=== PATIENT | female | born 1985 | race Caucasian/White ===

== ENCOUNTER 2019-01-20 16:10 | Emergency (ER) | payer BC ==
[2019-01-20 16:47] VITALS: BP 121/65
--- NOTE | 2019-01-20 17:06 | UC ---
Respiratory Complaint HPI - HPI Summary HPI Summary: 33-year-old woman comes in with a chief complaint of 3-1/2 weeks of upper respiratory tract infection symptoms. Patient is 15 weeks . She's been using Robitussin without much relief. Patient does have some rhinorrhea occasionally is yellow location is white. In the evening she notices a postnasal drip during the daytime she does notice the post nasal drip. She feels like she has congestion in her chest. When she coughs she feels like she started to get something up but then she gets into coughing fits where she coughed so much she vomits. She did have fevers early in the illness. - History of Current Complaint Chief Complaint: UCRespiratory Stated Complaint: COUGH (15 WEEKS PREG) Time Seen by Provider: 01/20/19 16:55 Hx Last Menstrual Period: 10/05/18 Pain Intensity: 0 - Allergies/Home Medications Allergies/Adverse Reactions: Allergies Allergy/AdvReac Type Severity Reaction Status Date / Time bee sting Allergy Swelling Uncoded 01/20/19 16:47 Home Medications: Home Medications Nighttime Robitussin 1 dose PO QPM PRN 01/20/19 [History Confirmed 01/20/19] Vitamin TAB* 1 tab PO DAILY 01/20/19 [History Confirmed 01/20/19] Vitamin D Tablet 1 dose PO QPM 01/20/19 [History Confirmed 01/20/19] guaiFENesin LIQ* [Robitussin*] 20 ml PO DAILY PRN 01/20/19 [History Confirmed ] PMH/Surg Hx/FS Hx/Imm Hx Previously Healthy: Yes - Surgical History Surgical History: None - Family History Known Family History: Positive: Non-Contributory - Social History Alcohol Use: None Substance Use Type: None Smoking Status (MU): Never Smoked Tobacco Review of Systems All Other Systems Reviewed And Are Negative: Yes Constitutional: Positive: Fever Skin: Positive: Negative Eyes: Positive: Negative ENT: Positive: Nasal Discharge, Sinus Congestion Respiratory: Positive: Cough, Other - see hpi Cardiovascular: Positive: Negative Gastrointestinal: Positive: Vomiting Motor: Positive: Negative Neurovascular: Positive: Negative Musculoskeletal: Positive: Negative Neurological: Positive: Negative Psychological: Positive: Negative Is Patient Immunocompromised?: No Physical Exam Triage Information Reviewed: Yes Appearance: Well-Appearing, No Pain Distress, Well-Nourished Vital Signs: Initial Vital Signs Temp 99 F 01/20/19 16:38 Pulse 92 01/20/19 16:38 Resp 20 01/20/19 16:38 BP 121/65 01/20/19 16:38 Pulse Ox 98 01/20/19 16:38 Vital Signs Reviewed: Yes Eye Exam: Normal Eyes: Positive: Conjunctiva Clear ENT: Positive: Pharyngeal erythema, Nasal congestion, Nasal drainage, TMs normal Neck: Positive: Supple Respiratory: Positive: Lungs clear, Normal breath sounds, No respiratory distress Cardiovascular: Positive: RRR Musculoskeletal: Positive: Strength Intact, ROM Intact Neurological: Positive: Alert, Muscle Tone Normal Psychological: Positive: Age Appropriate Behavior, Abnormal Response To Family Skin Exam: Normal Respiratory Course/Dx - Course Course Of Treatment: We discussed viral versus bacterial infections and the role of antibiotics. Patient does have some green rhinorrhea and her symptoms been going on for 3-1/ 2 weeks. She feels like the congestion in her chest is her biggest concern. Patient is we'll treat with Nabeel azithromycin. Patient also continue symptomatic treatment is appropriate during . Follow-up with [facility] get reevaluated sooner if worse or any questions or concerns. - Differential Dx/Diagnosis Provider Diagnosis: Bronchitis Discharge ED - Sign-Out/Discharge Documenting (check all that apply): Patient Departure All imaging exams completed and their final reports reviewed: No Studies - Discharge Plan Condition: Stable Disposition: HOME Prescriptions: Azithromyxin JOSIAS (NF) [Z-Josias (Zithromax) 250 mg tabs #6] 2 tab PO .TODAY, THEN 1 DAILY #6 tab Patient Education Materials: Acute Bronchitis (ED) Referrals: Amrita MATTA,Molly Ashraf [Primary Care Provider] - Additional Instructions: FOLLOW UP WITH YOUR OBGYN. GET REEVALUATED SOONER IF NOT IMPROVING OR YOUR CONDITION WORSENS OR ANY QUESTIONS OR CONCERNS. - Billing Disposition and Condition Condition: STABLE Disposition: Home
== END 2019-01-20 17:17 | disposition home or self-care (01) ==
LOC: UCCORT 16:10
DX: O99.512 Diseases of the respiratory system complicating pregnancy, second trimester (principal); J40 Bronchitis, not specified as acute or chronic; O99.89 Other specified diseases and conditions complicating pregnancy, childbirth and the puerperium; R09.89 Other specified symptoms and signs involving the circulatory and respiratory systems; R09.82 Postnasal drip; R09.81 Nasal congestion; Z3A.15 15 weeks gestation of pregnancy; Z91.030 Bee allergy status
CPT/HCPCS: 99202; G0463